=== PATIENT | male | born 1965 | race Caucasian/White ===

== ENCOUNTER 2016-11-29 00:07 | Inpatient (IN) | payer OTHER ==
[~2016-11-29] VITALS: Ht 175.3 cm; Wt 70.0 kg
[2016-11-29] VITALS (11 sets, daily range): BP systolic 112–187; BP diastolic 54–90
[~2016-11-29 00:07] MED LIST: ADVAIR HFA120 INHALA IH; AMLODIPINE BESY10 MG PO; ASPIR-LOW81 MG PO; ATIVAN0.5 MG PO; AZITHROMYCIN250 MG1 PO; BACTRIM,SEPT1 TABLE1 PO; CALCIUM ACETAT667 MG PO; CATAPRES0.1 MG PO; CATAPRES0.2 MG PO; CEFTIN500 MG PO; CELLCEPT250 MG PO; CLONIDINE HCL0.1 MG PO; CLONIDINE HCL0.2 MG PO; CORDARONE200 MG PO; DAILY VITE1 EAC1 PO; DIALYVITE TABL1 EACH PO; ELIQUIS5 MG PO; ENDOCET 5-3251 EACH PO; EPOGEN,PRO2000 UNITS IV; HYDROCODON-ACE1 EAC7 PO; KEFLEX250 MG PO; LABETALOL HCL200 MG PO; LEVOFLOXACIN500 MG PO; LISINOPRIL10 MG PO; LISINOPRIL40 MG PO; LORAZEPAM0.5 MG PO; LOSARTAN POTASS50 MG PO; MELATONIN5 M1 PO; MINOXIDIL10 MG PO; MINOXIDIL2.5 MG PO; MYCOPHENOLATE250 MG PO; NEPHROCAPS SOFTG1 MG PO; NIFEDIPINE ER60 MG PO; NORCO 5/3251 TABLET PO; NORMODYNE,TRAN200 MG PO; NORVASC10 MG PO; PANTOPRAZOLE SO40 MG PO; PERCOCET 5/31 TABLET PO; PHOSLYRA667 MG/5 M PO; PREDNISONE10 MG PO; PROTONIX40 MG PO; RENAPLEX D PO; RENAPLEX PO; RENVELA800 MG PO; SPIRIVA RESPIMAT4 GM IH; TYLENOL EXTRA500 MG PO; VALACYCLOVIR500 MG PO; ZITHROMAX Z-PA250 MG PO
[2016-11-29 02:01] LABS: EOSINOPHIL (%) 3.4 % (0-5); EOSINOPHIL COUNT 0.4 K/uL (0-0.3); IMMATURE GRANULOCYTE (%) 0.4 % (0.0-0.7); IMMATURE GRANULOCYTE COUNT 0.4 K/uL; LYMPHOCYTE COUNT 0.9 K/uL (1.0-2.8); MCH 29.5 PG (29.0-34.0); MCHC 32.3 G/DL (30.0-36.0); MCV 91.2 FL (86-99); MEAN PLAT.VOLUME 10.1 uM^3 (9.0-12.4); MONOCYTE COUNT 0.5 K/uL (0-0.8); NEUTROPHIL (%) 82.2 % (45-76); NEUTROPHIL COUNT 8.5 K/uL (1.8-6.4); PLATELET COUNT 168 K/uL (156-360); RBC DIS.WIDTH-CV 14.6 % (11.8-14.6); RBC DIS.WIDTH-SD 45.9 % (39-53); RED BLOOD COUNT 2.85 M/uL (4.00-5.50); WHITE BLOOD COUNT 10.3 K/uL (4.1-10.2)
[2016-11-29 02:10] LABS: CHLORIDE 100 mEq/L (99-109); SODIUM 138 mEq/L (136-147)
[2016-11-29 02:13] LABS: GLUCOSE 101 mg/dL (70-99)
[2016-11-29 02:14] LABS: ANION GAP 15 MEQ/L (2-14)
[2016-11-29 02:15] LABS: TOTAL BILIRUBIN 0.5 mg/dL (0.0-1.0)
[2016-11-29 02:16] LABS: ALKALINE PHOSPHATASE 67 IU/L (3-129); GFR ESTIMATE (CALCULATED) 7 mL/min/
[2016-11-29 02:17] LABS: UREA NITROGEN (BUN) 33 mg/dL (9-23)
[2016-11-29 02:39] LABS: SERUM ETHYL ALCOHOL < 10 mg/dL
[2016-11-29 02:47] LABS: TROP-I INTERPRETATION NEGATIVE; TROPONIN-I < 0.01 ng/mL (0.0-0.30)
[2016-11-29 08:17] LABS: HEMATOCRIT 25.6 % (38.0-50.0); MCH 29.9 PG (29.0-34.0); MCHC 32.8 G/DL (30.0-36.0); MCV 91.1 FL (86-99); MEAN PLAT.VOLUME 10.4 uM^3 (9.0-12.4); PLATELET COUNT 159 K/uL (156-360); RBC DIS.WIDTH-SD 49.9 % (39-53); RED BLOOD COUNT 2.81 M/uL (4.00-5.50); WHITE BLOOD COUNT 8.6 K/uL (4.1-10.2)
[2016-11-30] VITALS (8 sets, daily range): BP systolic 93–145; BP diastolic 50–64
[2016-11-30 06:30] LABS: EOSINOPHIL (%) 1.4 % (0-5); EOSINOPHIL COUNT 0.1 K/uL (0-0.3); HEMATOCRIT 24.9 % (38.0-50.0); IMMATURE GRANULOCYTE (%) 0.5 % (0.0-0.7); LYMPHOCYTE COUNT 0.6 K/uL (1.0-2.8); MCH 30.1 PG (29.0-34.0); MCHC 33.3 G/DL (30.0-36.0); MCV 90.2 FL (86-99); MEAN PLAT.VOLUME 9.7 uM^3 (9.0-12.4); MONOCYTE (%) 9.4 % (3-12); MONOCYTE COUNT 0.6 K/uL (0-0.8); NEUTROPHIL COUNT 4.6 K/uL (1.8-6.4); PLATELET COUNT 116 K/uL (156-360); RBC DIS.WIDTH-CV 15.7 % (11.8-14.6); RBC DIS.WIDTH-SD 50.7 % (39-53); RED BLOOD COUNT 2.76 M/uL (4.00-5.50)
[2016-11-30 06:31] LABS: WHITE BLOOD COUNT 5.9 K/uL (4.1-10.2)
[2016-11-30 06:48] LABS: ALKALINE PHOSPHATASE 52 IU/L (3-129); ANION GAP 13 MEQ/L (2-14); CHLORIDE 100 MEQ/L (99-109); GFR ESTIMATE (CALCULATED) 8 mL/min/; GLUCOSE 99 mg/dL (70-99); POTASSIUM 4.2 MEQ/L (3.7-5.4); SAMPLE HEMOLYSIS CHECK 0; SAMPLE ICTERIC CHECK 0; SAMPLE LIPEMIA CHECK 0; SODIUM 137 MEQ/L (136-147); TOTAL BILIRUBIN 0.5 MG/DL (0.0-1.0); UREA NITROGEN (BUN) 30 mg/dL (9-23)
[2016-11-30 06:53] LABS: TROP-I INTERPRETATION NEGATIVE; TROPONIN-I 0.02 ng/mL (0.0-0.30)
[2016-11-30 18:56] LABS: HEMATOCRIT 27.8 % (38.0-50.0); MCV 89.7 FL (86-99)
[2016-12-01 08:01] VITALS: BP 94/40
[2016-12-01 09:19] LABS: INTER. NORMALIZED RATIO 1.2; PROTHROMBIN TIME 12.5 (9.2-11.2); PTT 35.7 (25-32)
[2016-12-01 09:37] LABS: ANION GAP 16 MEQ/L (2-14); CHLORIDE 98 MEQ/L (99-109); GFR ESTIMATE (CALCULATED) 6 mL/min/; GLUCOSE 103 mg/dL (70-99); POTASSIUM 4.7 MEQ/L (3.7-5.4); SAMPLE HEMOLYSIS CHECK 0; SAMPLE ICTERIC CHECK 0; SAMPLE LIPEMIA CHECK 0; SODIUM 135 MEQ/L (136-147)
[2016-12-01 09:38] LABS: UREA NITROGEN (BUN) 53 mg/dL (9-23)
[2016-12-01 09:42] VITALS: BP 93/47
[2016-12-01 15:55] VITALS: BP 111/53
[2016-12-02] VITALS (11 sets, daily range): BP systolic 95–148; BP diastolic 47–77
[2016-12-02 09:36] LABS: ANION GAP 18 MEQ/L (2-14); CHLORIDE 99 MEQ/L (99-109); POTASSIUM 5.1 MEQ/L (3.7-5.4); SAMPLE HEMOLYSIS CHECK 0; SAMPLE ICTERIC CHECK 0; SAMPLE LIPEMIA CHECK 0; SODIUM 136 MEQ/L (136-147)
[2016-12-02 09:41] LABS: GFR ESTIMATE (CALCULATED) 5 mL/min/; GLUCOSE 116 mg/dL (70-99); UREA NITROGEN (BUN) 67 mg/dL (9-23)
[2016-12-02] MEDS ORDERED: PHOSLYRA667 MG/5 M PO (11:35)
[2016-12-03 03:20] VITALS: BP 110/55
[2016-12-03 06:51] LABS: EOSINOPHIL (%) 2.4 % (0-5); EOSINOPHIL COUNT 0.1 K/uL (0-0.3); HEMATOCRIT 28.3 % (38.0-50.0); IMMATURE GRANULOCYTE (%) 0.3 % (0.0-0.7); LYMPHOCYTE COUNT 0.4 K/uL (1.0-2.8); MCH 29.6 PG (29.0-34.0); MCHC 33.2 G/DL (30.0-36.0); MEAN PLAT.VOLUME 10.4 uM^3 (9.0-12.4); MONOCYTE (%) 8.4 % (3-12); MONOCYTE COUNT 0.5 K/uL (0-0.8); NEUTROPHIL (%) 81.8 % (45-76); NEUTROPHIL COUNT 4.7 K/uL (1.8-6.4); PLATELET COUNT 108 K/uL (156-360); RBC DIS.WIDTH-CV 15.4 % (11.8-14.6); RED BLOOD COUNT 3.18 M/uL (4.00-5.50); WHITE BLOOD COUNT 5.7 K/uL (4.1-10.2)
[2016-12-03 06:55] LABS: ANION GAP 13 MEQ/L (2-14); CHLORIDE 100 MEQ/L (99-109); GFR ESTIMATE (CALCULATED) 10 mL/min/; GLUCOSE 102 mg/dL (70-99); POTASSIUM 4.1 MEQ/L (3.7-5.4); SAMPLE HEMOLYSIS CHECK 0; SAMPLE ICTERIC CHECK 0; SAMPLE LIPEMIA CHECK 0; SODIUM 137 MEQ/L (136-147)
[2016-12-03 06:56] LABS: UREA NITROGEN (BUN) 31 mg/dL (9-23)
[2016-12-03 08:33] VITALS: BP 129/60
[2016-12-03 16:32] VITALS: BP 103/51
[2016-12-04 01:05] VITALS: BP 109/59
[2016-12-04 07:51] VITALS: BP 108/51
[2016-12-04 08:55] LABS: HEMATOCRIT 25.3 % (38.0-50.0); MCH 30.3 PG (29.0-34.0); MCHC 34.4 G/DL (30.0-36.0); MCV 88.2 FL (86-99); MEAN PLAT.VOLUME 9.6 uM^3 (9.0-12.4); PLATELET COUNT 127 K/uL (156-360); RBC DIS.WIDTH-CV 15.1 % (11.8-14.6); RBC DIS.WIDTH-SD 48.6 % (39-53); RED BLOOD COUNT 2.87 M/uL (4.00-5.50); WHITE BLOOD COUNT 6.2 K/uL (4.1-10.2)
[2016-12-04 09:35] LABS: ANION GAP 15 MEQ/L (2-14); CHLORIDE 100 MEQ/L (99-109); POTASSIUM 4.6 MEQ/L (3.7-5.4); SAMPLE HEMOLYSIS CHECK 0; SAMPLE ICTERIC CHECK 0; SAMPLE LIPEMIA CHECK 0; SODIUM 136 MEQ/L (136-147)
[2016-12-04 09:45] LABS: GFR ESTIMATE (CALCULATED) 7 mL/min/; GLUCOSE 104 mg/dL (70-99)
[2016-12-04 09:46] LABS: UREA NITROGEN (BUN) 53 mg/dL (9-23)
[2016-12-04 10:52] LABS: TROP-I INTERPRETATION NEGATIVE; TROPONIN-I 0.01 ng/mL (0.0-0.30)
[2016-12-04 12:24] VITALS: BP 140/69
[2016-12-04 16:30] VITALS: BP 125/60
[2016-12-04 23:55] VITALS: BP 158/74
[2016-12-05 08:14] VITALS: BP 144/65
[2016-12-05] MEDS ORDERED: ELIQUIS2.5 MG PO (12:31)
[2016-12-05] MEDS ORDERED: SENNA PLUS TAB1 EACH PO (12:32)
[2016-12-05] MEDS ORDERED: ENDOCET 5-3251 EACH PO (14:25)
[2016-12-05] MEDS ORDERED: ELIQUIS5 MG PO (14:25)
== END 2016-12-05 16:28 | disposition home or self-care (01) | DRG 480 ==
LOC: EME → EDBD 00:07 → EDOF 03:54 → 3EAST 03:54
PROVIDERS: Anesthesiology; Emergency Medicine; Hospitalist; Internal Medicine; Internal Medicine Cardiovascular Disease; Internal Medicine Nephrology; Orthopaedic Surgery
DX: S72.144A Nondisplaced intertrochanteric fracture of right femur, initial encounter for closed fracture (principal); N18.6 End stage renal disease; I42.9 Cardiomyopathy, unspecified; M31.0 Hypersensitivity angiitis; D62 Acute posthemorrhagic anemia; I12.0 Hypertensive chronic kidney disease with stage 5 chronic kidney disease or end stage renal disease; G40.909 Epilepsy, unspecified, not intractable, without status epilepticus; J45.909 Unspecified asthma, uncomplicated; I48.0 Paroxysmal atrial fibrillation; E78.5 Hyperlipidemia, unspecified; Z79.82 Long term (current) use of aspirin; Z99.2 Dependence on renal dialysis; Z87.891 Personal history of nicotine dependence; Y92.9 Unspecified place or not applicable
CPT/HCPCS: 71010; 73502; 73700; 76000; 80048; 80053; 80069; 82272; 84484; 85014; 85018; 85025; 85025 91; 85027; 85610; 85730; 86850; 86900; 86901; 86920; 87040; 93005; 94799; 99281; 99285; C1713; G0480; J0131; J0690; J1170; J1644; J1940; J2250; J2405; J2765; J3010; J7030; J7040; J7512; J7517; P9016

== ENCOUNTER 2017-01-03 14:51 | Emergency (ER) | payer OTHER ==
[~2017-01-03] VITALS: Ht 188 cm; Wt 73.7 kg
[~2017-01-03 14:51] MED LIST changes: +ELIQUIS2.5 MG PO; +SENNA PLUS TAB1 EACH PO
[2017-01-03 17:16] LABS: HEMATOCRIT 25.9 % (38.0-50.0); MCH 29.3 PG (29.0-34.0); MCV 91.5 FL (86-99); MEAN PLAT.VOLUME 9.3 uM^3 (9.0-12.4); PLATELET COUNT 126 K/uL (156-360); RBC DIS.WIDTH-CV 14.9 % (11.8-14.6); RBC DIS.WIDTH-SD 49.8 % (39-53); RED BLOOD COUNT 2.83 M/uL (4.00-5.50)
[2017-01-03 17:26] LABS: CHLORIDE 94 mEq/L (99-109); POTASSIUM 3.6 mEq/L (3.7-5.4); SODIUM 138 mEq/L (136-147)
[2017-01-03 17:28] LABS: GLUCOSE 92 mg/dL (70-99)
[2017-01-03 17:29] LABS: ANION GAP 12 MEQ/L (2-14)
[2017-01-03 17:32] LABS: GFR ESTIMATE (CALCULATED) 16 mL/min/
[2017-01-03 17:33] LABS: UREA NITROGEN (BUN) 12 mg/dL (9-23)
[2017-01-03] MEDS ORDERED: LIDOCAINE-HC 3-11 GM TP (18:37)
[2017-01-03 18:53] VITALS: BP 165/81
== END 2017-01-03 18:59 | disposition home or self-care (01) ==
LOC: EME 14:51
PROVIDERS: Emergency Medicine
DX: K62.89 Other specified diseases of anus and rectum (principal); I12.0 Hypertensive chronic kidney disease with stage 5 chronic kidney disease or end stage renal disease; N18.6 End stage renal disease; Z99.2 Dependence on renal dialysis; J45.909 Unspecified asthma, uncomplicated; E78.5 Hyperlipidemia, unspecified
CPT/HCPCS: 80048; 85027; 87070; 87075; 87076; 87077; 87185; 87186; 87205; 87252 90; 99281; 99285

== ENCOUNTER 2017-12-20 08:58 | Inpatient (IN) | payer OTHER ==
[~2017-12-20] VITALS: Ht 188 cm; Wt 68.6 kg
[~2017-12-20 08:58] MED LIST changes: +LIDOCAINE-HC 3-11 GM TP
[2017-12-20 09:39] LABS: HEMATOCRIT 27.4 % (38.0-50.0); HEMOGLOBIN 9.4 G/DL (12.5-16.6); MCHC 34.3 G/DL (30.0-36.0); MCV 84.6 FL (86-99); PLATELET COUNT 103 K/uL (156-360); RBC DIS.WIDTH-CV 15.9 % (11.8-14.6); RBC DIS.WIDTH-SD 49.1 % (39-53); RED BLOOD COUNT 3.24 M/uL (4.00-5.50); WHITE BLOOD COUNT 3.1 K/uL (4.1-10.2)
[2017-12-20 09:50] LABS: ALBUMIN 3.5 g/dL (3.2-4.8)
[2017-12-20 09:51] LABS: CHLORIDE 94 mEq/L (99-109); POTASSIUM 3.4 mEq/L (3.7-5.4); SODIUM 137 mEq/L (136-147)
[2017-12-20 09:53] LABS: GLUCOSE 96 mg/dL (70-99); TOTAL PROTEIN 7.3 g/dL (6.4-8.3)
[2017-12-20 09:56] LABS: ALKALINE PHOSPHATASE 93 IU/L (3-129); CREATININE 5.8 mg/dL (0.6-1.3); GFR ESTIMATE (CALCULATED) 11 mL/min/ (58.99-99999)
[2017-12-20 09:58] LABS: AST (GOT) 14 IU/L (2-34); UREA NITROGEN (BUN) 20 mg/dL (9-23)
[2017-12-20 09:59] LABS: ALT (GPT) 7 IU/L (3-49)
[2017-12-20 12:35] LABS: TROP-I INTERPRETATION NEGATIVE; TROPONIN-I 0.05 ng/mL (0.0-0.30)
[2017-12-20 14:07] VITALS: BP 142/70
[2017-12-20] MEDS ORDERED: AMOXICILLIN250 MG PO (16:01)
[2017-12-20 16:09] VITALS: BP 173/99
[2017-12-20 20:03] VITALS: BP 143/76
[2017-12-21] VITALS: BP 134/69
[2017-12-21 04:00] VITALS: BP 119/66
[2017-12-21 07:48] VITALS: BP 132/69
[2017-12-21 08:03] LABS: BASOPHIL (%) 0.2 % (0-1); EOSINOPHIL (%) 0 % (0-5); HEMATOCRIT 26.6 % (38.0-50.0); HEMOGLOBIN 8.9 G/DL (12.5-16.6); IMMATURE GRANULOCYTE (%) 0.5 % (0.0-0.7); LYMPHOCYTE (%) 11.9 % (15-42); LYMPHOCYTE COUNT 0.5 K/uL (1.0-2.8); MCH 28.3 PG (29.0-34.0); MCHC 33.5 G/DL (30.0-36.0); MCV 84.4 FL (86-99); MONOCYTE (%) 6.1 % (3-12); MONOCYTE COUNT 0.3 K/uL (0-0.8); NEUTROPHIL (%) 81.3 % (45-76); NEUTROPHIL COUNT 3.6 K/uL (1.8-6.4); PLATELET COUNT 108 K/uL (156-360); RBC DIS.WIDTH-CV 16.2 % (11.8-14.6); RBC DIS.WIDTH-SD 49.4 % (39-53); RED BLOOD COUNT 3.15 M/uL (4.00-5.50); WHITE BLOOD COUNT 4.4 K/uL (4.1-10.2)
[2017-12-21 08:28] LABS: CHLORIDE 94 MEQ/L (99-109); GFR ESTIMATE (CALCULATED) 8 mL/min/ (58.99-99999); GLUCOSE 115 mg/dL (70-99); POTASSIUM 3.5 MEQ/L (3.7-5.4); SODIUM 135 MEQ/L (136-147)
[2017-12-21 08:48] LABS: CREATININE 7.7 MG/DL (0.6-1.3); UREA NITROGEN (BUN) 38 mg/dL (9-23)
[2017-12-21 11:23] VITALS: BP 120/60
[2017-12-21 15:17] VITALS: BP 130/67
[2017-12-21 23:55] VITALS: BP 148/70
[2017-12-22 07:33] VITALS: BP 132/90
[2017-12-22 09:17] LABS: HEMATOCRIT 27.8 % (38.0-50.0); HEMOGLOBIN 9.4 G/DL (12.5-16.6); MCH 29.2 PG (29.0-34.0); MCHC 33.8 G/DL (30.0-36.0); MCV 86.3 FL (86-99); PLATELET COUNT 118 K/uL (156-360); RBC DIS.WIDTH-CV 16.9 % (11.8-14.6); RBC DIS.WIDTH-SD 53.1 % (39-53); RED BLOOD COUNT 3.22 M/uL (4.00-5.50); WHITE BLOOD COUNT 5.9 K/uL (4.1-10.2)
[2017-12-22 10:43] LABS: CHLORIDE 92 MEQ/L (99-109); CREATININE 9.4 MG/DL (0.6-1.3); GFR ESTIMATE (CALCULATED) 6 mL/min/ (58.99-99999); GLUCOSE 105 mg/dL (70-99); POTASSIUM 3.4 MEQ/L (3.7-5.4); SODIUM 137 MEQ/L (136-147); UREA NITROGEN (BUN) 51 mg/dL (9-23)
[2017-12-22 16:14] VITALS: BP 153/75
[2017-12-22 23:23] VITALS: BP 148/78
[2017-12-23 07:45] VITALS: BP 145/69
[2017-12-23] MEDS ORDERED: LOSARTAN POTAS100 MG PO (11:52)
[2017-12-23] MEDS ORDERED: CEFDINIR300 MG PO (11:52)
[2017-12-23] MEDS ORDERED: AZITHROMYCIN250 MG PO (11:52)
[2017-12-23] MEDS ORDERED: LOPRESSOR100 M1 PO (11:52)
[2017-12-23] MEDS ORDERED: LONITEN10 MG PO (11:52)
== END 2017-12-23 13:33 | disposition home or self-care (01) | DRG 193 ==
LOC: EME 08:58 → EDOF 11:27 → 5SOUTH 11:27 → ENRESERV 11:33 → EDOF 12:01 → ENRESERV 12:09 → 5SOUTH 13:20 → ENPENDDIS 12-23 11:58 → 5SOUTH 12-23 13:33
PROVIDERS: Internal Medicine; Nurse Practitioner Family
PROC: 5A1D70Z Performance of Urinary Filtration, Intermittent, Less than 6 Hours Per Day (ICD-10-PCS; principal; 2017-12-22)
DX: J18.9 Pneumonia, unspecified organism (principal); J44.0 Chronic obstructive pulmonary disease with (acute) lower respiratory infection; Y95 Nosocomial condition; J20.9 Acute bronchitis, unspecified; J44.1 Chronic obstructive pulmonary disease with (acute) exacerbation; I13.2 Hypertensive heart and chronic kidney disease with heart failure and with stage 5 chronic kidney disease, or end stage renal disease; I50.9 Heart failure, unspecified; N18.6 End stage renal disease; I48.0 Paroxysmal atrial fibrillation; D61.818 Other pancytopenia; E78.5 Hyperlipidemia, unspecified; M31.0 Hypersensitivity angiitis; G43.909 Migraine, unspecified, not intractable, without status migrainosus; F17.200 Nicotine dependence, unspecified, uncomplicated; Z79.82 Long term (current) use of aspirin; Z99.2 Dependence on renal dialysis
CPT/HCPCS: 71046; 71250; 80048; 80053; 83520 90; 84484; 85025; 85027; 87040; 87070; 87205; 87449; 87502; 87641; 93005; 94640; 94640 76; 94760; 94799; 99202; 99281; 99284; J0696; J1644; J2405; J2543; J3370; J7050; J7512

== ENCOUNTER 2018-03-05 07:00 | Day surgery (SDC) | payer OTHER ==
[~2018-03-05] VITALS: Ht 188 cm; Wt 70.3 kg
[~2018-03-05 07:00] MED LIST changes: +AMOXICILLIN250 MG PO; +AZITHROMYCIN250 MG PO; +CEFDINIR300 MG PO; +LONITEN10 MG PO; +LOPRESSOR100 M1 PO; +LOSARTAN POTAS100 MG PO
[2018-03-05] MEDS ORDERED: ANALPRAM HC 2.530 GM PR (07:40)
[2018-03-05] MEDS ORDERED: CALCIUM ACETAT667 MG PO (07:41)
[2018-03-05] MEDS ORDERED: CHILD ASPIRIN81 M1 PO (07:41)
[2018-03-05] MEDS ORDERED: PERCOCET 5/31 TABLET PO (07:46)
[2018-03-05] MEDS ORDERED: PREDNISONE10 MG PO (07:47)
[2018-03-05] MEDS ORDERED: PROCTOSOL-HC28.35 GM PR (07:47)
== END 2018-03-05 09:40 | disposition home or self-care (01) ==
LOC: CATH 07:00
DX: T82.858A Stenosis of other vascular prosthetic devices, implants and grafts, initial encounter (principal); Y83.2 Surgical operation with anastomosis, bypass or graft as the cause of abnormal reaction of the patient, or of later complication, without mention of misadventure at the time of the procedure; I12.0 Hypertensive chronic kidney disease with stage 5 chronic kidney disease or end stage renal disease; N18.6 End stage renal disease; Z99.2 Dependence on renal dialysis; Z79.82 Long term (current) use of aspirin
CPT/HCPCS: 87641; C1725; C1769; C1894; J1644; J2250; J3010

== ENCOUNTER 2018-04-16 20:20 | Inpatient (IN) | payer OTHER ==
[~2018-04-16] VITALS: Ht 188 cm; Wt 73.1 kg
[~2018-04-16 20:20] MED LIST changes: +ANALPRAM HC 2.530 GM PR; +CHILD ASPIRIN81 M1 PO; +PROCTOSOL-HC28.35 GM PR
[2018-04-16 21:22] LABS: HEMATOCRIT 31.3 % (38.0-50.0); HEMOGLOBIN 10.4 G/DL (12.5-16.6); MCH 29.9 PG (29.0-34.0); MCHC 33.2 G/DL (30.0-36.0); MCV 89.9 FL (86-99); PLATELET COUNT 90 K/uL (156-360); RBC DIS.WIDTH-CV 17.4 % (11.8-14.6); RBC DIS.WIDTH-SD 57.4 % (39-53); RED BLOOD COUNT 3.48 M/uL (4.00-5.50); WHITE BLOOD COUNT 4.2 K/uL (4.1-10.2)
[2018-04-16 21:30] LABS: CHLORIDE 100 mEq/L (99-109); SODIUM 134 mEq/L (136-147)
[2018-04-16 21:32] LABS: GLUCOSE 84 mg/dL (70-99)
[2018-04-16 21:36] LABS: CREATININE 10.5 mg/dL (0.6-1.3); GFR ESTIMATE (CALCULATED) 6 mL/min/ (58.99-99999)
[2018-04-16 21:37] LABS: UREA NITROGEN (BUN) 35 mg/dL (9-23)
[2018-04-16 21:44] LABS: TROP-I INTERPRETATION NEGATIVE; TROPONIN-I 0.02 ng/mL (0.0-0.30)
[2018-04-16 21:51] LABS: MAGNESIUM 1.9 mg/dL (1.3-2.7)
[2018-04-16 22:46] LABS: INTER. NORMALIZED RATIO 1.3
[2018-04-17 03:03] VITALS: BP 158/78
[2018-04-17 07:15] VITALS: BP 177/86
[2018-04-17 10:46] LABS: ALBUMIN 3.5 G/DL (3.2-4.8); ALKALINE PHOSPHATASE 82 IU/L (3-129); ALT (GPT) 6 IU/L (3-49); AST (GOT) 8 IU/L (2-34); CHLORIDE 100 MEQ/L (99-109); GFR ESTIMATE (CALCULATED) 5 mL/min/ (58.99-99999); GLUCOSE 96 mg/dL (70-99); SODIUM 135 MEQ/L (136-147); TOTAL BILIRUBIN 0.6 MG/DL (0.0-1.0); TOTAL PROTEIN 6.9 G/DL (6.4-8.3); UREA NITROGEN (BUN) 40 mg/dL (9-23)
[2018-04-17 10:50] LABS: BASOPHIL (%) 0.7 % (0-1); EOSINOPHIL (%) 4.4 % (0-5); EOSINOPHIL COUNT 0.2 K/uL (0-0.3); HEMATOCRIT 29.6 % (38.0-50.0); HEMOGLOBIN 9.7 G/DL (12.5-16.6); IMMATURE GRANULOCYTE (%) 0.9 % (0.0-0.7); LYMPHOCYTE (%) 7.5 % (15-42); LYMPHOCYTE COUNT 0.3 K/uL (1.0-2.8); MCH 29.2 PG (29.0-34.0); MCHC 32.8 G/DL (30.0-36.0); MCV 89.2 FL (86-99); MONOCYTE (%) 7.8 % (3-12); MONOCYTE COUNT 0.4 K/uL (0-0.8); NEUTROPHIL (%) 78.7 % (45-76); NEUTROPHIL COUNT 3.6 K/uL (1.8-6.4); PLATELET COUNT 100 K/uL (156-360); RBC DIS.WIDTH-CV 17.3 % (11.8-14.6); RBC DIS.WIDTH-SD 56.7 % (39-53); RED BLOOD COUNT 3.32 M/uL (4.00-5.50); WHITE BLOOD COUNT 4.5 K/uL (4.1-10.2)
[2018-04-17] MEDS ORDERED: AMIODARONE HCL200 MG PO (11:53)
[2018-04-17] MEDS ORDERED: PRAMOSONE 1%28.4 GM TP (11:54)
[2018-04-17] MEDS ORDERED: PHOSLYRA667 MG/5 M PO ×2 (11:55)
[2018-04-17] MEDS ORDERED: CLONIDINE HCL0.2 MG PO (11:56)
[2018-04-17] MEDS ORDERED: ASPIRIN81 M2 PO (11:56)
[2018-04-17] MEDS ORDERED: LOSARTAN POTASS50 MG PO (11:57)
[2018-04-17] MEDS ORDERED: METOPROLOL TAR100 MG PO (11:57)
[2018-04-17] MEDS ORDERED: MINOXIDIL10 MG PO (11:58)
[2018-04-17] MEDS ORDERED: PANTOPRAZOLE SO40 MG PO (11:59)
[2018-04-17] MEDS ORDERED: NIFEDIPINE ER60 MG PO (11:59)
[2018-04-17] MEDS ORDERED: PROCTOSOL-HC28.35 GM PR (12:00)
[2018-04-17] MEDS ORDERED: RENAPLEX-D TAB1 EACH PO (12:01)
[2018-04-17] MEDS ORDERED: ENDOCET 5-3251 EACH PO (12:02)
[2018-04-17] MEDS ORDERED: LABETALOL HCL200 MG PO (12:33)
[2018-04-17 20:08] VITALS: BP 168/81
[2018-04-18 00:04] VITALS: BP 180/90
[2018-04-18 08:00] VITALS: BP 188/86
[2018-04-18 09:08] LABS: BASOPHIL (%) 0.5 % (0-1); EOSINOPHIL (%) 3.8 % (0-5); EOSINOPHIL COUNT 0.2 K/uL (0-0.3); HEMATOCRIT 29.8 % (38.0-50.0); HEMOGLOBIN 9.7 G/DL (12.5-16.6); IMMATURE GRANULOCYTE (%) 0.8 % (0.0-0.7); LYMPHOCYTE (%) 10.4 % (15-42); LYMPHOCYTE COUNT 0.4 K/uL (1.0-2.8); MCH 29.2 PG (29.0-34.0); MCHC 32.6 G/DL (30.0-36.0); MCV 89.8 FL (86-99); MONOCYTE (%) 6.6 % (3-12); MONOCYTE COUNT 0.3 K/uL (0-0.8); NEUTROPHIL (%) 77.9 % (45-76); NEUTROPHIL COUNT 3.1 K/uL (1.8-6.4); PLATELET COUNT 98 K/uL (156-360); RBC DIS.WIDTH-CV 16.9 % (11.8-14.6); RBC DIS.WIDTH-SD 55.3 % (39-53); RED BLOOD COUNT 3.32 M/uL (4.00-5.50); WHITE BLOOD COUNT 3.9 K/uL (4.1-10.2)
[2018-04-18 10:00] LABS: CHLORIDE 97 MEQ/L (99-109); GLUCOSE 131 mg/dL (70-99); POTASSIUM 4.1 MEQ/L (3.7-5.4); SODIUM 139 MEQ/L (136-147); UREA NITROGEN (BUN) 22 mg/dL (9-23)
[2018-04-18 10:15] LABS: CREATININE 7.5 MG/DL (0.6-1.3); GFR ESTIMATE (CALCULATED) 8 mL/min/ (58.99-99999)
[2018-04-18 15:50] VITALS: BP 141/77
[2018-04-18 20:30] VITALS: BP 149/73
[2018-04-18 23:05] VITALS: BP 142/74
[2018-04-19 05:00] VITALS: BP 120/66
[2018-04-19 06:50] VITALS: BP 136/70
[2018-04-19 09:38] LABS: HEMATOCRIT 28.7 % (38.0-50.0); HEMOGLOBIN 9.2 G/DL (12.5-16.6); MCH 28.8 PG (29.0-34.0); MCHC 32.1 G/DL (30.0-36.0); MCV 89.7 FL (86-99); PLATELET COUNT 107 K/uL (156-360); RBC DIS.WIDTH-CV 16.5 % (11.8-14.6); WHITE BLOOD COUNT 5.1 K/uL (4.1-10.2)
[2018-04-19 10:47] LABS: CHLORIDE 99 MEQ/L (99-109); GFR ESTIMATE (CALCULATED) 6 mL/min/ (58.99-99999); GLUCOSE 130 mg/dL (70-99); SODIUM 137 MEQ/L (136-147)
[2018-04-19 10:50] LABS: CREATININE 9.6 MG/DL (0.6-1.3); UREA NITROGEN (BUN) 34 mg/dL (9-23)
[2018-04-19 11:20] VITALS: BP 116/73
[2018-04-19] MEDS ORDERED: AUGMENTIN875 MG PO (12:10)
== END 2018-04-19 14:57 | disposition home or self-care (01) | DRG 193 ==
LOC: EME → EDBD 20:20 → 5EAST 23:56 → EDOF 23:56 → CANRESERV 23:57 → ENRESERV 23:57 → 5EAST 04-17 02:21 → ENRESERVDT 04-17 23:56 → ENRESERVTM 04-17 23:56 → ENRESERV 04-17 23:56 → 5EAST 04-19 14:57
PROVIDERS: Emergency Medicine; Hospitalist; Internal Medicine Nephrology; Physician Assistant
PROC: 5A1D70Z Performance of Urinary Filtration, Intermittent, Less than 6 Hours Per Day (ICD-10-PCS; principal; 2018-04-17)
DX: J18.9 Pneumonia, unspecified organism (principal); E78.5 Hyperlipidemia, unspecified; I12.0 Hypertensive chronic kidney disease with stage 5 chronic kidney disease or end stage renal disease; R09.02 Hypoxemia; N18.6 End stage renal disease; I13.2 Hypertensive heart and chronic kidney disease with heart failure and with stage 5 chronic kidney disease, or end stage renal disease; I48.91 Unspecified atrial fibrillation; I42.9 Cardiomyopathy, unspecified; E87.2 Acidosis; J81.1 Chronic pulmonary edema; D63.1 Anemia in chronic kidney disease; Z99.2 Dependence on renal dialysis; Z79.899 Other long term (current) drug therapy; Z90.49 Acquired absence of other specified parts of digestive tract; Z87.891 Personal history of nicotine dependence; Z87.01 Personal history of pneumonia (recurrent)
CPT/HCPCS: 71046; 80048; 80053; 81003; 83605; 83735; 84484; 85025; 85027; 85610; 85730; 87040; 87070; 87205; 87449; 93005; 94640; 94640 76; 94760; 94799; 99202; 99281; 99285; J0456; J0696; J1644; J2930; J7030